=== PATIENT | male | born 1995 | race American Indian/Alaskan Native ===

== ENCOUNTER 2017-09-08 23:35 | Emergency (ER) | payer OTHER ==
[~2017-09-08] VITALS: Ht 180.3 cm; Wt 127.3 kg
[2017-09-08 23:37] VITALS: BP 142/81
[2017-09-09] MEDS ORDERED: IBUPROFEN 200 MG TABLET PO ONE
[2017-09-09] MEDS ORDERED: KETOROLAC 30 MG/1 ML ONE (00:20)
[2017-09-09] MEDS ORDERED: OXYcodone/APAP 10/325MG TABLET ONE (00:20)
[2017-09-09] MEDS ORDERED: IBUPROFEN 200 MG TABLET ONE (00:29)
[2017-09-09] MEDS ORDERED: OXYcodone/APAP 10/325MG TABLET PO ONE (00:30)
[2017-09-09] MEDS ORDERED: KETOROLAC 30 MG/1 ML IM ONE (00:30)
== END 2017-09-09 01:45 | disposition home or self-care (01) ==
LOC: ED 23:58
DX: S93.491A Sprain of other ligament of right ankle, initial encounter (principal); X50.1XXA Overexertion from prolonged static or awkward postures, initial encounter; Y93.01 Activity, walking, marching and hiking; Y92.410 Unspecified street and highway as the place of occurrence of the external cause; Y99.8 Other external cause status
CPT/HCPCS: 73610; 96372; 99284; J1885